=== PATIENT | male | born 1950 | race Caucasian/White ===

== ENCOUNTER 2021-01-07 07:18 | Emergency (ER) | payer MEDICARE, OTHER ==
[~2021-01-07 07:18] MED LIST: ASPIRIN EC81 MG PO; CYCLOBENZAPRINE10 MG PO; LIPITOR40 MG PO; MILK THISTLE175 M1 PO; SYNTHROID100 MCG PO; TOPROL XL 50 MG50 MG PO; VITAMIN D350 MC3 PO
[2021-01-07 07:53] LABS: BASOPHIL 1.6 % (0-2); EOSINOPHIL 3.7 % (0-7); HCT 38.4 % (42.0-52.0); HGB 12.6 g/dl (13.2-18.0); LYMPHOCYTE 40.1 % (15-48); MCH 33.2 pg (25.0-31.0); MCHC 32.8 g/dL (32.0-36.0); MCV 101.1 fL (78.0-100.0); MONOCYTE 8.2 % (0-12); MPV 10.4 fL (6.0-9.5); NEUTROPHIL 46.1 % (41-80); NRBC 0; PLT 191 K/uL (150-400); RDW 13.5 % (11.5-14.0); WBC 7.6 K/uL (4.0-10.5)
[2021-01-07 08:24] LABS: ALBUMIN 2.4 g/dL (3.4-5.0); BILIRUBIN - TOTAL 1.9 mg/dL (0.2-1.0); BUN/CREAT RATIO (CALC) 18.8 RATIO; CREATININE 0.8 mg/dL (0.67-1.17); GLOBULIN (CALCULATION) 3.3 g/dL; POTASSIUM 5.5 mmol/L (3.5-5.1); TOTAL PROTEIN 5.7 g/dL (6.4-8.2)
[2021-01-07 08:39] LABS: INR 1.53 (0.9-1.2); PROTHROMBIN TIME 17.7 SECONDS (11.8-13.4)
== END 2021-01-07 09:55 | disposition other institution (70) ==
LOC: FER 07:18
PROVIDERS: Emergency Medicine
DX: R55 Syncope and collapse (principal); R57.9 Shock, unspecified; K92.2 Gastrointestinal hemorrhage, unspecified; I10 Essential (primary) hypertension; Z79.82 Long term (current) use of aspirin; Z20.822 Contact with and (suspected) exposure to COVID-19
CPT/HCPCS: 36415; 36430; 70450; 71045; 72192; 80053; 84443; 84484; 85025; 85610; 93005; 96365; 96368; 96375; 96376; C1751; C9113; J2354; J2405; J7030; P9016; U0002

== ENCOUNTER 2021-07-30 00:37 | Inpatient (IN) | payer MEDICARE, OTHER ==
[~2021-07-30] VITALS: Ht 170.2 cm; Wt 77.5 kg
[2021-07-30 00:58] LABS: BASOPHIL 0.7 % (0-2); EOSINOPHIL 0.1 % (0-7); HCT 36.8 % (42.0-52.0); HGB 13.1 g/dl (13.2-18.0); LYMPHOCYTE 4.6 % (15-48); MCH 34.7 pg (25.0-31.0); MCHC 35.6 g/dL (32.0-36.0); MCV 97.6 fL (78.0-100.0); MPV 9.7 fL (6.0-9.5); NEUTROPHIL 87.9 % (41-80); NRBC 0; PLT 128 K/uL (150-400); RBC 3.77 M/uL (4.70-6.00); RDW 14.8 % (11.5-14.0); WBC 8.6 K/uL (4.0-10.5)
[2021-07-30 01:30] LABS: ALBUMIN 2.7 g/dL (3.4-5.0); BILIRUBIN - TOTAL 2.2 mg/dL (0.2-1.0); BUN/CREAT RATIO (CALC) 17.5 RATIO; CREATININE 1.14 mg/dL (0.67-1.17); GLOBULIN (CALCULATION) 3.4 g/dL; POTASSIUM 3.9 mmol/L (3.5-5.1); TOTAL PROTEIN 6.1 g/dL (6.4-8.2)
[2021-07-30 01:48] LABS: CORONAVIRUS 2019 SARS-COV-2 NEGATIVE (NEGATIVE); INFLUENZA A NAA NEGATIVE (NEGATIVE)
[2021-07-30 02:28] LABS: BILIRUBIN NEGATIVE (NEGATIVE); BLOOD NEGATIVE Ery/uL (NEGATIVE); CLARITY CLEAR (CLEAR); COLOR YELLOW (YELLOW); GLUCOSE (U) NORMAL (NORMAL); LEUKOCYTES 1+ Leu/uL (NEGATIVE); NITRITE NEGATIVE (NEGATIVE); PROTEIN NEGATIVE (NEGATIVE)
[2021-07-30 02:34] LABS: BACTERIA 4+
[2021-07-30 07:56] LABS: INR 1.5 (0.9-1.2); PROTHROMBIN TIME 17.4 SECONDS (11.8-13.4); PTT 39.4 SECONDS (24.4-34.7)
[2021-07-30 12:10] LABS: WBC (FLUID) 195 WBC/uL
[2021-07-30 13:08] LABS: COLOR (FLUID) AMBER
[2021-07-30 13:09] LABS: CLARITY (FLUID) CLEAR; RBC (FLUID) 780 RBC/uL
--- NOTE | 2021-07-30 16:48 | NUR ---
REPORT FROM AZAR CARRINGTON IN ED PRIOR TO PT COMING TO THE UNIT. PT ARRIVED VIA STRETCHER. SHEET SLIDE TO HOSPITAL BED X3 NURSES. CAMACHO PLACED BELOW LEVEL OF BLADDER. STAT-LOCK APPLIED TO RIGHT INNER THIGH TO SECURE CAMACHO IN PLACE, SKIN PREP SWAB USED PRIOR TO APPLICATION. 2 IV SITES BILATERAL FORARM 18G SALINE LOCKS IN PLACE. ED LINEN REMOVED AND PT REPOSITIONED IN BED. ASSESSMENT PERFORMED WITH SPOUSE AT BEDSIDE.
[2021-07-30] MEDS ORDERED: ASPIRIN EC81 MG PO (17:09)
[2021-07-30] MEDS ORDERED: LIPITOR40 MG PO (17:10)
[2021-07-30] MEDS ORDERED: LASIX40 MG PO (17:10)
[2021-07-30] MEDS ORDERED: LACTULOSE10 G/15 ML PO (17:11)
[2021-07-30] MEDS ORDERED: ALDACTONE100 MG PO (17:12)
[2021-07-30] MEDS ORDERED: SYNTHROID88 MCG PO (17:13)
[2021-07-30] MEDS ORDERED: VITAMIN D350 MC3 PO (17:15)
[2021-07-30] MEDS ORDERED: FLOMAX 0.4 MG0.4 MG PO (17:16)
[2021-07-31 05:28] LABS: BASOPHIL 1.1 % (0-2); EOSINOPHIL 0.4 % (0-7); HGB 12.9 g/dl (13.2-18.0); LYMPHOCYTE 14.4 % (15-48); MCH 34.8 pg (25.0-31.0); MCHC 34.9 g/dL (32.0-36.0); MCV 99.7 fL (78.0-100.0); MONOCYTE 10.8 % (0-12); MPV 9.9 fL (6.0-9.5); NEUTROPHIL 72.9 % (41-80); NRBC 0; PLT 109 K/uL (150-400); RBC 3.71 M/uL (4.70-6.00); RDW 15.2 % (11.5-14.0)
[2021-07-31 05:49] LABS: BUN/CREAT RATIO (CALC) 18.8 RATIO; CREATININE 0.96 mg/dL (0.67-1.17); MAGNESIUM 1.8 mg/dL (1.8-2.4)
[2021-08-01 05:40] LABS: BASOPHIL 0.9 % (0-2); EOSINOPHIL 3.3 % (0-7); HCT 37.6 % (42.0-52.0); LYMPHOCYTE 24.1 % (15-48); MCHC 34.6 g/dL (32.0-36.0); MCV 98.4 fL (78.0-100.0); MPV 9.8 fL (6.0-9.5); NEUTROPHIL 59.4 % (41-80); NRBC 0; PLT 116 K/uL (150-400); RBC 3.82 M/uL (4.70-6.00); WBC 5.8 K/uL (4.0-10.5)
[2021-08-01 05:58] LABS: ALBUMIN 2.4 g/dL (3.4-5.0); BUN/CREAT RATIO (CALC) 15.7 RATIO; CREATININE 0.83 mg/dL (0.67-1.17); GLOBULIN (CALCULATION) 3.3 g/dL; POTASSIUM 3.7 mmol/L (3.5-5.1); TOTAL PROTEIN 5.7 g/dL (6.4-8.2)
--- NOTE | 2021-08-01 12:16 | NUR ---
08/01/21 Mr. Brandon lives at home with his spouse. He was independent with mobility. No discharge planning needs are anticipated.
--- NOTE | 2021-08-01 16:44 | NUR ---
08/01/25 A referral was made to [facility] for IV antibitics. Family decided to received the antibiotics as an outpatient due to the co-payment of $580.
[2021-08-02] MEDS ORDERED: ERTAPENEM1 GM IV (13:31)
== END 2021-08-02 14:10 | disposition home or self-care (01) | DRG 871 ==
LOC: FER 00:37 → FICU 09:52 → FOFB 09:52 → FICU 09:53 → FOFB 08-01 09:25 → FICU 08-01 09:26
PROVIDERS: Emergency Medicine; Internal Medicine; ADMIT Internal Medicine
PROC: 3E033XZ Introduction of Vasopressor into Peripheral Vein, Percutaneous Approach (ICD-10-PCS; principal; 2021-07-30)
PROC: 3E03329 Introduction of Other Anti-infective into Peripheral Vein, Percutaneous Approach (ICD-10-PCS; 2021-07-30)
PROC: 05HY33Z Insertion of Infusion Device into Upper Vein, Percutaneous Approach (ICD-10-PCS; 2021-07-30)
PROC: 0W9G3ZX Drainage of Peritoneal Cavity, Percutaneous Approach, Diagnostic (ICD-10-PCS; 2021-07-30)
PROC: 0T9B70Z Drainage of Bladder with Drainage Device, Via Natural or Artificial Opening (ICD-10-PCS; 2021-07-30)
DX: A41.51 Sepsis due to Escherichia coli [E. coli] (principal); R65.21 Severe sepsis with septic shock; K72.00 Acute and subacute hepatic failure without coma; N30.00 Acute cystitis without hematuria; N17.9 Acute kidney failure, unspecified; K74.60 Unspecified cirrhosis of liver; Z20.822 Contact with and (suspected) exposure to COVID-19; E03.9 Hypothyroidism, unspecified; I10 Essential (primary) hypertension; E78.5 Hyperlipidemia, unspecified; G47.30 Sleep apnea, unspecified; I25.10 Atherosclerotic heart disease of native coronary artery without angina pectoris; N40.0 Benign prostatic hyperplasia without lower urinary tract symptoms; R54 Age-related physical debility; Z98.890 Other specified postprocedural states; Z85.828 Personal history of other malignant neoplasm of skin; Z79.82 Long term (current) use of aspirin; Z79.899 Other long term (current) drug therapy
CPT/HCPCS: 36415; 71045; 80048; 80053; 81001; 82140; 82150; 83605; 83735; 83880; 84145; 84153; 84484; 85025; 85610; 85730; 87040; 87070; 87076; 87077; 87088; 87186; 87205; 89051; 93005; 96365; 96366; 96375; 97162; 97165; 97530-GP; 97535; C1751; J1335; J2543; J7030; J7060; P9047; U0002

== ENCOUNTER 2021-10-18 14:37 | Emergency (ER) | payer MEDICARE, OTHER ==
[~2021-10-18] VITALS: Ht 170.2 cm; Wt 77.1 kg
[~2021-10-18 14:37] MED LIST changes: +ALDACTONE100 MG PO; +ERTAPENEM1 GM IV; +FLOMAX 0.4 MG0.4 MG PO; +LACTULOSE10 G/15 ML PO; +LASIX40 MG PO; +SYNTHROID88 MCG PO
[2021-10-18 16:12] LABS: BASOPHIL 0.5 % (0-2); EOSINOPHIL 0.3 % (0-7); HCT 35.1 % (42.0-52.0); LYMPHOCYTE 6.6 % (15-48); MCH 33.5 pg (25.0-31.0); MCHC 34.2 g/dL (32.0-36.0); MONOCYTE 7.8 % (0-12); MPV 9.2 fL (6.0-9.5); NEUTROPHIL 84.4 % (41-80); NRBC 0; PLT 140 K/uL (150-400); RBC 3.58 M/uL (4.70-6.00); RDW 13.3 % (11.5-14.0); WBC 11.7 K/uL (4.0-10.5)
[2021-10-18 16:22] LABS: ALBUMIN 2.8 g/dL (3.4-5.0); BILIRUBIN - TOTAL 1.5 mg/dL (0.2-1.0); BUN/CREAT RATIO (CALC) 12.5 RATIO; CREATININE 1.2 mg/dL (0.67-1.17); GLOBULIN (CALCULATION) 3.5 g/dL; POTASSIUM 4.4 mmol/L (3.5-5.1); TOTAL PROTEIN 6.3 g/dL (6.4-8.2)
[2021-10-18 17:36] LABS: BILIRUBIN NEGATIVE (NEGATIVE); BLOOD NEGATIVE Ery/uL (NEGATIVE); CLARITY CLEAR (CLEAR); COLOR YELLOW (YELLOW); GLUCOSE (U) NORMAL (NORMAL); LEUKOCYTES NEGATIVE Leu/uL (NEGATIVE); NITRITE POSITIVE (NEGATIVE); PROTEIN NEGATIVE (NEGATIVE); SPECIFIC GRAVITY 1.015 (1.001-1.030); pH 6.5 (5.0-9.0)
[2021-10-18 17:46] LABS: BACTERIA 3+
[2021-10-18] MEDS ORDERED: VALACYCLOVIR1000 MG PO (17:53)
== END 2021-10-18 18:16 | disposition home or self-care (01) ==
LOC: FER 14:37
PROVIDERS: Physician Assistant
DX: B02.9 Zoster without complications (principal); I10 Essential (primary) hypertension; E78.5 Hyperlipidemia, unspecified; Z79.899 Other long term (current) drug therapy
CPT/HCPCS: 36415; 71045; 80053; 81001; 83880; 85025; 87076; 87088; 87186

== ENCOUNTER 2021-10-20 23:31 | Emergency (ER) | payer MEDICARE, OTHER ==
[~2021-10-20 23:31] MED LIST changes: +VALACYCLOVIR1000 MG PO
[2021-10-20 23:57] LABS: EOSINOPHIL 1.6 % (0-7); HCT 30.4 % (42.0-52.0); HGB 10.2 g/dl (13.2-18.0); LYMPHOCYTE 18.1 % (15-48); MCH 33.9 pg (25.0-31.0); MCHC 33.6 g/dL (32.0-36.0); MONOCYTE 10.5 % (0-12); MPV 9.7 fL (6.0-9.5); NEUTROPHIL 67.9 % (41-80); NRBC 0; PLT 197 K/uL (150-400); RBC 3.01 M/uL (4.70-6.00); RDW 13.5 % (11.5-14.0); WBC 9.3 K/uL (4.0-10.5)
[2021-10-21 00:51] LABS: ALBUMIN 2.4 g/dL (3.4-5.0); BILIRUBIN - TOTAL 1.5 mg/dL (0.2-1.0); BUN/CREAT RATIO (CALC) 29.5 RATIO; CREATININE 1.12 mg/dL (0.67-1.17); GLOBULIN (CALCULATION) 3.4 g/dL; POTASSIUM 5.2 mmol/L (3.5-5.1); TOTAL PROTEIN 5.8 g/dL (6.4-8.2)
[2021-10-21 02:57] LABS: HCT 27.8 % (42.0-52.0); HGB 9.3 g/dL (13.2-18.0)
== END 2021-10-21 04:40 | disposition other institution (70) ==
LOC: FER 23:31
PROVIDERS: Internal Medicine
DX: K74.60 Unspecified cirrhosis of liver (principal); I85.11 Secondary esophageal varices with bleeding; D50.0 Iron deficiency anemia secondary to blood loss (chronic); Z20.822 Contact with and (suspected) exposure to COVID-19
CPT/HCPCS: 36415; 80053; 82271; 83690; 84145; 84484; 85014; 85018; 85025; 86850; 86900; 86901; 86922; 93005; C9113; J0696; J2354; J2550; J7030; U0002

== ENCOUNTER 2021-12-23 10:39 | Inpatient (IN) | payer MEDICARE, OTHER ==
[~2021-12-23] VITALS: Ht 170.2 cm; Wt 68.1 kg
[2021-12-23 11:28] LABS: BILIRUBIN NEGATIVE (NEGATIVE); BLOOD NEGATIVE Ery/uL (NEGATIVE); CLARITY HAZY (CLEAR); COLOR YELLOW (YELLOW); GLUCOSE (U) NORMAL (NORMAL); LEUKOCYTES 1+ Leu/uL (NEGATIVE); NITRITE POSITIVE (NEGATIVE); PROTEIN NEGATIVE (NEGATIVE); SPECIFIC GRAVITY 1.015 (1.001-1.030); UROBILINOGEN 0.2 mg/dL (0.2-1.0)
[2021-12-23 11:38] LABS: BASOPHIL 0.6 % (0-2); EOSINOPHIL 0.2 % (0-7); HCT 29.9 % (42.0-52.0); HGB 9.9 g/dl (13.2-18.0); LYMPHOCYTE 5.3 % (15-48); MCH 30.7 pg (25.0-31.0); MCHC 33.1 g/dL (32.0-36.0); MCV 92.6 fL (78.0-100.0); MONOCYTE 10.8 % (0-12); MPV 9.5 fL (6.0-9.5); NEUTROPHIL 82.6 % (41-80); NRBC 0; PLT 119 K/uL (150-400); RBC 3.23 M/uL (4.70-6.00); RDW 14.7 % (11.5-14.0); WBC 6.4 K/uL (4.0-10.5)
[2021-12-23 11:47] LABS: BACTERIA 4+; URINARY RBC RARE; URINARY WBC 20-50
[2021-12-23 11:52] LABS: INR 1.43 (0.9-1.2); PTT 36.6 SECONDS (24.9-34.6)
[2021-12-23 12:00] LABS: ALBUMIN 2.9 g/dL (3.4-5.0); BILIRUBIN - TOTAL 1.3 mg/dL (0.2-1.0); BUN/CREAT RATIO (CALC) 13.8 RATIO; CREATININE 1.09 mg/dL (0.67-1.17); GLOBULIN (CALCULATION) 3.8 g/dL; POTASSIUM 4.2 mmol/L (3.5-5.1); TOTAL PROTEIN 6.7 g/dL (6.4-8.2)
[2021-12-23 12:07] LABS: LACTIC ACID 2.1 mmol/L (0.4-1.9)
[2021-12-23] MEDS ORDERED: LIPITOR40 MG PO (15:49)
[2021-12-23] MEDS ORDERED: ASPIRIN EC81 MG PO (15:49)
[2021-12-23] MEDS ORDERED: PROSCAR5 MG PO (15:50)
[2021-12-23] MEDS ORDERED: LASIX40 MG PO (15:50)
[2021-12-23] MEDS ORDERED: LACTULOSE10 G/15 ML PO (15:51)
[2021-12-23] MEDS ORDERED: ALDACTONE100 MG PO (15:51)
[2021-12-23] MEDS ORDERED: SYNTHROID88 MCG PO (15:51)
[2021-12-23] MEDS ORDERED: FLOMAX0.4 MG PO (15:52)
[2021-12-23] MEDS ORDERED: VITAMIN D PO (15:53)
[2021-12-23] MEDS ORDERED: ZINC50 MG PO (15:53)
[2021-12-24 06:35] LABS: EOSINOPHIL 2.9 % (0-7); HCT 27.6 % (42.0-52.0); HGB 8.9 g/dl (13.2-18.0); LYMPHOCYTE 27.9 % (15-48); MCH 30.6 pg (25.0-31.0); MCHC 32.2 g/dL (32.0-36.0); MCV 94.8 fL (78.0-100.0); MONOCYTE 16.9 % (0-12); MPV 9.6 fL (6.0-9.5); NEUTROPHIL 50.9 % (41-80); NRBC 0; PLT 114 K/uL (150-400); RBC 2.91 M/uL (4.70-6.00); RDW 14.7 % (11.5-14.0); WBC 4.8 K/uL (4.0-10.5)
[2021-12-24 08:04] LABS: IRON % SATURATION 11.3 %SAT (20-50)
[2021-12-24 08:32] LABS: BUN/CREAT RATIO (CALC) 13.2 RATIO; CREATININE 1.06 mg/dL (0.67-1.17); FOLIC ACID (SERUM) 14.2 ng/mL (8.6-58.9); POTASSIUM 4.5 mmol/L (3.5-5.1)
[2021-12-26 06:36] LABS: BASOPHIL 1.5 % (0-2); EOSINOPHIL 4.2 % (0-7); HCT 29.2 % (42.0-52.0); HGB 9.5 g/dl (13.2-18.0); LYMPHOCYTE 35.1 % (15-48); MCH 30.6 pg (25.0-31.0); MCHC 32.5 g/dL (32.0-36.0); MCV 94.2 fL (78.0-100.0); MONOCYTE 10.9 % (0-12); MPV 9.3 fL (6.0-9.5); NEUTROPHIL 47.9 % (41-80); NRBC 0; PLT 130 K/uL (150-400); RDW 14.9 % (11.5-14.0); WBC 4.8 K/uL (4.0-10.5)
[2021-12-26 06:47] LABS: BUN/CREAT RATIO (CALC) 10.7 RATIO; CREATININE 1.03 mg/dL (0.67-1.17); POTASSIUM 4.4 mmol/L (3.5-5.1)
[2021-12-26] MEDS ORDERED: INVANZ 1GM1 GM/VIAL IV (10:57)
== END 2021-12-26 11:30 | disposition home or self-care (01) | DRG 690 ==
LOC: FER 10:39 → FMS 14:16
PROVIDERS: Internal Medicine; ADMIT Internal Medicine
DX: N39.0 Urinary tract infection, site not specified (principal); E87.1 Hypo-osmolality and hyponatremia; R18.8 Other ascites; K76.6 Portal hypertension; Z16.12 Extended spectrum beta lactamase (ESBL) resistance; K74.60 Unspecified cirrhosis of liver; R16.1 Splenomegaly, not elsewhere classified; B96.20 Unspecified Escherichia coli [E. coli] as the cause of diseases classified elsewhere; N41.9 Inflammatory disease of prostate, unspecified; D50.9 Iron deficiency anemia, unspecified; Z20.822 Contact with and (suspected) exposure to COVID-19; R73.03 Prediabetes; I25.10 Atherosclerotic heart disease of native coronary artery without angina pectoris; E03.9 Hypothyroidism, unspecified; I10 Essential (primary) hypertension; N40.0 Benign prostatic hyperplasia without lower urinary tract symptoms; E78.5 Hyperlipidemia, unspecified; Z95.1 Presence of aortocoronary bypass graft; Z82.49 Family history of ischemic heart disease and other diseases of the circulatory system; Z79.82 Long term (current) use of aspirin; Z79.899 Other long term (current) drug therapy
CPT/HCPCS: 36415; 70450; 80048; 80053; 81001; 82140; 82607; 82746; 83540; 83550; 83605; 83690; 83880; 84145; 85025; 85610; 85730; 87040; 87076; 87088; 87186; G0378; J1335; J2543; J2916; J7030; U0002

== ENCOUNTER 2022-02-23 21:56 | Emergency (ER) | payer MEDICARE, OTHER ==
[~2022-02-23 21:56] MED LIST changes: +FLOMAX0.4 MG PO; +INVANZ 1GM1 GM/VIAL IV; +PROSCAR5 MG PO; +VITAMIN D PO; +ZINC50 MG PO
[2022-02-24 00:25] LABS: CORONAVIRUS 2019 SARS-COV-2 NEGATIVE (NEGATIVE); INFLUENZA A NAA NEGATIVE (NEGATIVE)
[2022-02-24 00:28] LABS: BILIRUBIN NEGATIVE (NEGATIVE); BLOOD NEGATIVE Ery/uL (NEGATIVE); CLARITY CLEAR (CLEAR); COLOR YELLOW (YELLOW); GLUCOSE (U) NORMAL (NORMAL); LEUKOCYTES 2+ Leu/uL (NEGATIVE); NITRITE NEGATIVE (NEGATIVE); PROTEIN NEGATIVE (NEGATIVE); SPECIFIC GRAVITY 1.015 (1.001-1.030); pH 6.5 (5.0-9.0)
[2022-02-24 00:32] LABS: ALBUMIN 2.6 g/dL (3.4-5.0); BILIRUBIN - TOTAL 1.3 mg/dL (0.2-1.0); BUN/CREAT RATIO (CALC) 19.8 RATIO; CREATININE 1.16 mg/dL (0.67-1.17); GLOBULIN (CALCULATION) 3.7 g/dL; POTASSIUM 4.7 mmol/L (3.5-5.1); TOTAL PROTEIN 6.3 g/dL (6.4-8.2)
[2022-02-24 00:39] LABS: BACTERIA 4+; URINARY RBC RARE
[2022-02-24 01:09] LABS: BASOPHIL 0.8 % (0-2); EOSINOPHIL 0.4 % (0-7); HCT 32.4 % (42.0-52.0); HGB 11.1 g/dl (13.2-18.0); LYMPHOCYTE 15.4 % (15-48); MCH 31.4 pg (25.0-31.0); MCHC 34.3 g/dL (32.0-36.0); MCV 91.5 fL (78.0-100.0); MONOCYTE 15.4 % (0-12); MPV 9.9 fL (6.0-9.5); NEUTROPHIL 67.6 % (41-80); NRBC 0; PLT 102 K/uL (150-400); RBC 3.54 M/uL (4.70-6.00); RDW 16.4 % (11.5-14.0); WBC 4.7 K/uL (4.0-10.5)
[2022-02-24] MEDS ORDERED: MACROBID100 MG PO (01:29)
[2022-02-24] MEDS ORDERED: FOSFOMYCIN TROME3 GM PO (01:38)
== END 2022-02-24 02:03 | disposition home or self-care (01) ==
LOC: FER 21:56
PROVIDERS: Emergency Medicine
DX: N39.0 Urinary tract infection, site not specified (principal); Z20.822 Contact with and (suspected) exposure to COVID-19
CPT/HCPCS: 36415; 80053; 81001; 84484; 85025; 87076; 87088; 87186; 99283; U0002

== ENCOUNTER 2022-03-06 11:53 | Emergency (ER) | payer MEDICARE, OTHER ==
[~2022-03-06 11:53] MED LIST changes: +FOSFOMYCIN TROME3 GM PO; +MACROBID100 MG PO
[2022-03-06 12:33] LABS: BASOPHIL 0.7 % (0-2); EOSINOPHIL 1.3 % (0-7); HCT 36.9 % (42.0-52.0); HGB 12.6 g/dl (13.2-18.0); LYMPHOCYTE 15.1 % (15-48); MCH 31.3 pg (25.0-31.0); MCHC 34.1 g/dL (32.0-36.0); MCV 91.8 fL (78.0-100.0); MONOCYTE 10.1 % (0-12); MPV 9.6 fL (6.0-9.5); NEUTROPHIL 72.3 % (41-80); NRBC 0; PLT 142 K/uL (150-400); RBC 4.02 M/uL (4.70-6.00); RDW 16.2 % (11.5-14.0); WBC 5.6 K/uL (4.0-10.5)
[2022-03-06 12:42] LABS: ALBUMIN 3.1 g/dL (3.4-5.0); BILIRUBIN - TOTAL 1.2 mg/dL (0.2-1.0); BUN/CREAT RATIO (CALC) 17.5 RATIO; CREATININE 1.2 mg/dL (0.67-1.17); GLOBULIN (CALCULATION) 4.3 g/dL; POTASSIUM 4.1 mmol/L (3.5-5.1); TOTAL PROTEIN 7.4 g/dL (6.4-8.2)
[2022-03-06 14:14] LABS: BILIRUBIN NEGATIVE (NEGATIVE); BLOOD NEGATIVE Ery/uL (NEGATIVE); CLARITY CLEAR (CLEAR); COLOR YELLOW (YELLOW); GLUCOSE (U) NORMAL (NORMAL); LEUKOCYTES NEGATIVE Leu/uL (NEGATIVE); NITRITE NEGATIVE (NEGATIVE); PROTEIN NEGATIVE (NEGATIVE); UROBILINOGEN 0.2 mg/dL (0.2-1.0)
[2022-03-06 16:05] LABS: CORONAVIRUS 2019 SARS-COV-2 NEGATIVE (NEGATIVE); INFLUENZA A NAA NEGATIVE (NEGATIVE)
== END 2022-03-06 17:08 | disposition home or self-care (01) ==
LOC: FER 11:53
PROVIDERS: Nurse Practitioner Family
DX: R53.1 Weakness (principal); Z20.822 Contact with and (suspected) exposure to COVID-19
CPT/HCPCS: 36415; 70450; 71045; 80053; 81003; 82140; 82150; 83690; 85025; 87088; J7030; U0002